=== PATIENT | female | born 1955 | race Caucasian/White ===

== ENCOUNTER → 2018-03-05 | Outpatient (CLI) | payer BC ==
[~2018-03-05] MED LIST: ABILIFY2 MG PO; CEFTIN 250250 MG/TAB PO; HCTZ 25MG TAB25 MG PO; LOTENSIN 1010 MG/TAB PO; MALOXICAM; NORCO 325 MG-51 TAB PO; PRISTIQ 50 MG T50 MG PO; ZOFRAN 4MG T4 MG/TAB PO
== END ==
LOC: COL.RAD 07:10
DX: M51.16 Intervertebral disc disorders with radiculopathy, lumbar region (principal); M43.16 Spondylolisthesis, lumbar region; M48.061 Spinal stenosis, lumbar region without neurogenic claudication; R60.0 Localized edema

== ENCOUNTER → 2018-04-03 | Outpatient (CLI) | payer BC ==
[~2018-04-03] VITALS: Ht 157.5 cm; Wt 68.2 kg
[~2018-04-03] MED LIST changes: +NORCO 325 MG-7.1 TAB PO; +OMEGA-31 SGL PO; +OSTEO-BI-FLEX 21 TAB PO; +XANAX 1MG1 MG PO
[2018-04-03 09:45] VITALS: BP 164/102; PULSE 103
[2018-04-03 10:43] VITALS: BP 120/70; PULSE 86
== END ==
LOC: COL.RAD 03-12 12:45
DX: M51.36 Other intervertebral disc degeneration, lumbar region (principal)
CPT/HCPCS: J3301

== ENCOUNTER → 2018-08-28 | Outpatient (CLI) | payer BC ==
[~2018-08-28] VITALS: Ht 157.5 cm; Wt 65.3 kg
[~2018-08-28] MED LIST changes: +CITRACAL + D CA1 TAB PO
[2018-08-28 09:30] VITALS: BP 143/100; PULSE 84
[2018-08-28 10:00] VITALS: BP 132/70; PULSE 73
== END ==
LOC: COL.RAD 08-07 11:45
DX: M43.16 Spondylolisthesis, lumbar region (principal); M48.061 Spinal stenosis, lumbar region without neurogenic claudication; M51.16 Intervertebral disc disorders with radiculopathy, lumbar region
CPT/HCPCS: J3301

== ENCOUNTER → 2023-07-21 | Outpatient (CLI) | payer OTHER | LOC: MHCPAIN 06-23 11:21 | DX: M54.16 Radiculopathy, lumbar region (principal); M47.816 Spondylosis without myelopathy or radiculopathy, lumbar region | CPT/HCPCS: J1100; Q9967 ==

== ENCOUNTER → 2024-05-25 | Outpatient (CLI) | payer OTHER | LOC: MHCPAIN 13:50 | DX: M54.16 Radiculopathy, lumbar region (principal); M43.16 Spondylolisthesis, lumbar region; M25.511 Pain in right shoulder | CPT/HCPCS: G0463 ==

== ENCOUNTER → 2024-06-24 | Outpatient (CLI) | payer OTHER ==
[~2024-06-24] MED LIST changes: +Iohexol 300 - 10 ML VIAL ONE; +Lidocaine PF 2% (20 MG/ML) 2 ML VIAL ONE
== END ==
LOC: MHCPAIN 10:02
DX: M54.17 Radiculopathy, lumbosacral region (principal); M54.50 Low back pain, unspecified; M47.816 Spondylosis without myelopathy or radiculopathy, lumbar region
CPT/HCPCS: J1100; Q9967